=== PATIENT | female | born 1985 | race Caucasian/White ===

== ENCOUNTER 2018-08-12 12:00 | Inpatient (IN) | payer OTHER ==
[~2018-08-12 12:00] MED LIST: OXYTOCIN 30 UNITS/LR 500 ML BAG IV
[2018-08-12] MEDS: LACTATED RINGER'S 1,000 ML IV ×3 (12:10→21:00)
[2018-08-12] MEDS ORDERED: MISOPROSTOL 200 MCG TAB PR ×2 (12:30→18:30)
[2018-08-12] MEDS ORDERED: CARBOPROST 250 MCG INJ IM ×2 (12:30→18:30)
[2018-08-12] MEDS ORDERED: METHYLERGONOVINE 0.2 MG INJ IM ×2 (12:30→18:30)
[2018-08-12] MEDS ORDERED: OXYTOCIN 30 UNITS/LR 500 ML IV ×2 (12:30→18:30)
[2018-08-12] MEDS: ONDANSETRON 4 MG INJ IV (12:50)
[2018-08-12 12:51] LABS: ADD MAN DIFF? NO
[2018-08-12 12:53] LABS: BASOPHILS % 0.3 % (0.0-2.0); EOSINOPHILS % 0.5 % (0.0-7.0); HEMATOCRIT 38.1 % (37.0-47.0); HEMOGLOBIN 12.5 g/dl (12.0-16.0); LYMPHOCYTES % 14.5 % (15.0-51.0); MEAN CORPUSCULAR HEMOGLOBIN 28.4 pg (29.0-33.0); MEAN CORPUSCULAR HGB CONC 32.8 g/dl (32.0-37.0); MEAN CORPUSCULAR VOLUME 86.6 fl (82.0-101.0); MEAN PLATELET VOLUME 9.9 fl (7.4-10.4); MONOCYTE # 0.4 10^3/ul (0.3-0.9); MONOCYTES % 5.6 % (0.0-11.0); NEUTROPHIL # 5.2 10^3/ul (1.6-7.5); NEUTROPHILS % 78.3 % (39.0-77.0); PLATELET COUNT 195 10^3/UL (140-415); RED CELL DISTRIBUTION WIDTH 13.7 % (11.5-14.5)
[2018-08-12 12:53] LABS: WHITE BLOOD COUNT 6.6 10^3/ul (4.8-10.8)
[2018-08-12 13:19] LABS: INR 0.79; PROTIME 11.1 Sec (11.9-14.9); PT RATIO 0.9
[2018-08-12 13:20] LABS: PARTIAL THROMBOPLASTIN TIME 23.6 Sec (23.0-35.0)
[2018-08-12] MEDS: CITRIC ACID/NA CITRATE 30 ML CUP PO (13:59)
[2018-08-12] MEDS ORDERED: PHENYLephrine (100 MCG/ML) 5ML SYG (14:31)
[2018-08-12] MEDS ORDERED: morphine SULFATE/PF (10 MG/10 ML) INJ (14:31)
[2018-08-12] MEDS ORDERED: OXYTOCIN 10 UNIT INJ (14:31)
[2018-08-12] MEDS ORDERED: HYDROmorphONE 0.5 MG/0.5 ML SYG IV ×4 (15:00→20:30)
[2018-08-12] MEDS ORDERED: NALBUPHINE HCL (10 MG/1 ML) INJ IV ×2 (15:00→20:30)
[2018-08-12] MEDS ORDERED: OXYCODONE/ACETAMINOPHEN (5/325) TAB PO (15:00)
[2018-08-12] MEDS ORDERED: ACETAMINOPHEN 500 MG TAB PO ×2 (15:00→20:30)
[2018-08-12] MEDS ORDERED: LABETALOL HCL 20MG INJ IV (15:00)
[2018-08-12] MEDS ORDERED: EPHEDrine SULFATE 50 MG/5 ML SYG IV (15:00)
[2018-08-12] MEDS ORDERED: ONDANSETRON 4 MG INJ IV ×3 (15:00→20:30)
[2018-08-12] MEDS ORDERED: DIPHENHYDRAMINE 50 MG INJ IV ×3 (15:00→20:30)
[2018-08-12] MEDS ORDERED: HYDROCODONE/APAP (5/325) TAB PO ×2 (15:00→20:30)
[2018-08-12] MEDS ORDERED: HYDROmorphONE 1 MG/5 ML IV SYRINGE IV ×2 (15:00)
[2018-08-12] MEDS ORDERED: morphine 2 MG INJ IV ×4 (15:00→20:30)
[2018-08-12] MEDS ORDERED: METOCLOPRAMIDE 10 MG INJ IV (15:00)
[2018-08-12] MEDS ORDERED: NALOXONE (0.4 MG/ML) INJ IV ×2 (15:00→20:30)
[2018-08-12] MEDS ORDERED: FENTAnyl 50 MCG/ML VIAL IV ×2 (15:00)
[2018-08-12] MEDS ORDERED: MEPERIDINE 25 MG INJ IV (15:00)
[2018-08-12] MEDS ORDERED: KETOROLAC 30 MG INJ IV (15:00)
[2018-08-12 15:06] LABS: HEPATITIS B SURFACE ANTIGEN NEGATIVE (NEGATIVE)
[2018-08-12] MEDS ORDERED: METOCLOPRAMIDE 10 MG INJ (15:08)
[2018-08-12] MEDS ORDERED: ONDANSETRON 4 MG INJ (15:08)
[2018-08-12] MEDS ORDERED: KETOROLAC 30 MG INJ (15:08)
[2018-08-12] MEDS ORDERED: EPHEDrine 25 MG/5 ML SYG (15:08)
[2018-08-12] MEDS ORDERED: DEXAMETHASONE 4 MG/ML 1 ML INJ (15:08)
[2018-08-12] MEDS: OXYTOCIN 30 UNITS/LR 500 ML IV (16:08)
[2018-08-12] MEDS: CEFAZOLIN 2 GM/50 ML (PMX) 50 ML IVPB ×2 (16:10→18:44)
[2018-08-12] MEDS: AZITHROMYCIN 500MG/NS (PMX) 250 ML IVPB (16:27)
[2018-08-12] MEDS ORDERED: LANOLIN HPA 1 PKT TOP (18:30)
[2018-08-12] MEDS ORDERED: NA PHOSPHATE/BIPHOS 133 ML ENEMA PR (18:30)
[2018-08-12 18:49] LABS: RAPID PLASMA REAGIN NONREACTIVE (NR)
[2018-08-12] MEDS: SENNA/DOCUSATE NA (8.6MG/50MG) TAB PO (21:00)
[2018-08-13] MEDS: CLINDAMYCIN 300 MG CAP PO ×5 (00:20→23:28)
[2018-08-13] MEDS: CEFAZOLIN 2 GM/50 ML (PMX) 50 ML IVPB ×2 (02:48→10:00)
[2018-08-13] MEDS: LACTATED RINGER'S 1,000 ML IV ×2 (05:22→13:30)
[2018-08-13 08:21] LABS: ADD MAN DIFF? NO
[2018-08-13 08:34] LABS: BASOPHILS % 0.1 % (0.0-2.0); EOSINOPHILS % 0.1 % (0.0-7.0); HEMATOCRIT 35.1 % (37.0-47.0); HEMOGLOBIN 11.6 g/dl (12.0-16.0); LYMPHOCYTES # 1.5 10^3/ul (0.8-2.9); LYMPHOCYTES % 13.2 % (15.0-51.0); MEAN CORPUSCULAR HEMOGLOBIN 28.5 pg (29.0-33.0); MEAN CORPUSCULAR VOLUME 86.2 fl (82.0-101.0); MEAN PLATELET VOLUME 10.5 fl (7.4-10.4); MONOCYTE # 0.8 10^3/ul (0.3-0.9); MONOCYTES % 6.9 % (0.0-11.0); NEUTROPHIL # 8.7 10^3/ul (1.6-7.5); NEUTROPHILS % 79.2 % (39.0-77.0); PLATELET COUNT 192 10^3/UL (140-415); RED BLOOD COUNT 4.07 10^6/ul (4.20-5.40); RED CELL DISTRIBUTION WIDTH 14.2 % (11.5-14.5)
[2018-08-13] MEDS: SENNA/DOCUSATE NA (8.6MG/50MG) TAB PO ×2 (08:40→21:46)
[2018-08-13] MEDS: KETOROLAC 30 MG INJ IV (10:01)
[2018-08-13] MEDS: BISACODYL 10 MG SUPP PR (10:02)
[2018-08-13] MEDS: HYDROCODONE/APAP (5/325) TAB PO (18:32)
[2018-08-13] MEDS: IBUPROFEN 800 MG TAB PO (21:47)
[2018-08-14] MEDS: HYDROCODONE/APAP (5/325) TAB PO ×2 (02:21→11:06)
[2018-08-14] MEDS: IBUPROFEN 800 MG TAB PO ×3 (05:39→21:40)
[2018-08-14] MEDS: CLINDAMYCIN 300 MG CAP PO ×4 (05:39→23:46)
[2018-08-14] MEDS: SENNA/DOCUSATE NA (8.6MG/50MG) TAB PO ×2 (09:34→21:40)
[2018-08-14] MEDS: OXYCODONE/ACETAMINOPHEN (5/325) TAB PO (16:14)
[2018-08-14] MEDS ORDERED: ACETAMINOPHEN 325 MG TAB PO (23:00)
[2018-08-15] MEDS: HYDROCODONE/APAP (5/325) TAB PO (01:11)
[2018-08-15] MEDS: IBUPROFEN 800 MG TAB PO ×2 (05:36→13:53)
[2018-08-15] MEDS: CLINDAMYCIN 300 MG CAP PO ×2 (05:36→11:56)
[2018-08-15 08:27] LABS: ADD MAN DIFF? NO
[2018-08-15 08:29] LABS: BASOPHILS % 0.3 % (0.0-2.0); EOSINOPHILS # 0.1 10^3/ul (0.0-0.5); HEMOGLOBIN 12.6 g/dl (12.0-16.0); LYMPHOCYTES # 1.2 10^3/ul (0.8-2.9); LYMPHOCYTES % 18.3 % (15.0-51.0); MEAN CORPUSCULAR HEMOGLOBIN 28.4 pg (29.0-33.0); MEAN CORPUSCULAR HGB CONC 32.3 g/dl (32.0-37.0); MEAN CORPUSCULAR VOLUME 87.8 fl (82.0-101.0); MEAN PLATELET VOLUME 9.6 fl (7.4-10.4); MONOCYTE # 0.4 10^3/ul (0.3-0.9); MONOCYTES % 6.6 % (0.0-11.0); NEUTROPHIL # 4.6 10^3/ul (1.6-7.5); NEUTROPHILS % 72.3 % (39.0-77.0); PLATELET COUNT 214 10^3/UL (140-415); RED BLOOD COUNT 4.44 10^6/ul (4.20-5.40); RED CELL DISTRIBUTION WIDTH 14.6 % (11.5-14.5)
[2018-08-15 08:29] LABS: WHITE BLOOD COUNT 6.4 10^3/ul (4.8-10.8)
[2018-08-15] MEDS: MEASLES,MUMPS,RUBELLA VACCINE INJ SC* (09:00)
[2018-08-15] MEDS: DIPHTH/TET/ACEL PERTUSS (ADULT) 0.5 ML VIAL IM* (09:00)
[2018-08-15] MEDS: SENNA/DOCUSATE NA (8.6MG/50MG) TAB PO (09:15)
[2018-08-15] MEDS: OXYCODONE/ACETAMINOPHEN (5/325) TAB PO (11:56)
== END 2018-08-15 17:55 | disposition home or self-care (01) | DRG 785 ==
LOC: L-D 12:00 → PP1 18:32
PROVIDERS: Obstetrics & Gynecology
PROC: 10D00Z1 Extraction of Products of Conception, Low, Open Approach (ICD-10-PCS; principal; 2018-08-12)
PROC: 0UB70ZZ Excision of Bilateral Fallopian Tubes, Open Approach (ICD-10-PCS; 2018-08-12)
DX: O34.219 Maternal care for unspecified type scar from previous cesarean delivery (principal); Z3A.39 39 weeks gestation of pregnancy; Z37.0 Single live birth; Z30.2 Encounter for sterilization
CPT/HCPCS: 85025; 85610; 85730; 86592; 86850; 86900; 86901; 87340; 88302; 99464